=== PATIENT | male | born 1980 | race Caucasian/White ===

== ENCOUNTER 2018-08-29 22:50 | Emergency (ER) | payer OTHER, SELFPAY ==
[2018-08-29 22:58] VITALS: BP 136/91; PULSE 90; RESP 15; TEMP 36.9; O2SAT 98; BMI 31.1
--- NOTE | 2018-08-29 23:05 | DI.RAD.S_ITS ---
PROCEDURE: XR CHEST 1V INDICATIONS: Chest pain TECHNIQUE: One view of the chest was acquired. COMPARISON: None. FINDINGS: Surgical changes and devices: None. Lungs and pleura: Lungs are clear. No pleural effusions or pneumothorax. Mediastinum: Mediastinal contours appear normal. Heart size is normal. Bones and chest wall: No suspicious bony lesions. Overlying soft tissues appear unremarkable. IMPRESSION: No acute cardiopulmonary disease. No significant discrepancy with the ER preliminary interpretation. Dictated by: Monica Holm M.D. on 08/30/2018 at 8:06 Approved by: Monica Holm M.D. on 08/30/2018 at 8:06
[2018-08-29 23:10] LABS: Add Manual Diff / Slide Review NO; Basophils Absolute Auto 100 /uL (0-100); Basophils Percent Auto 0.8 % (0-2); Eosinophils Absolute Auto 200 /uL (0-450); Eosinophils Percent Auto 2.3 % (2-4); Hematocrit 44.4 % (41-53); Hemoglobin 15.3 g/dL (13.5-17.5); Lymphocytes Absolute Auto 1100 /uL (1100-4500); Lymphocytes Percent Auto 14.8 % (25-40); Mean Corpuscular HGB Conc 34.4 % (30-36); Mean Corpuscular Hemoglobin 31.4 PG (26-34); Mean Corpuscular Volume 91.3 fL (80-100); Monocytes Absolute Auto 1000 /uL (0-900); Monocytes Percent Auto 13.6 % (3-14); Neutrophils Absolute Auto 4900 /uL (1500-7000); Neutrophils Percent Auto 68.5 % (50-75); Platelet Count 155 X10^3/uL (150-400); Red Blood Cell Count 4.87 X10^6/uL (4.5-5.9); Red Cell Distribution Width 13.4 % (11.6-14.8); White Blood Cell Count 7.1 X10^3/uL (4.5-11.0)
[2018-08-29] MEDS: ASPIRIN 81 MG TAB 324 MG PO (23:11)
[2018-08-29 23:20] LABS: D Dimer 227 ng/mL (<230)
[2018-08-29 23:21] LABS: Alanine Aminotransferase 20 IU/L (21-72); Albumin 4.5 g/dL (3.5-5.0); Albumin Globulin Ratio 1.5 (1.0-2.8); Alkaline Phosphatase 66 U/L (38-126); Aspartate Aminotransferase 22 IU/L (17-59); BUN Creatinine Ratio 16.4 (6-22); Bilirubin Total 0.5 mg/dL (0.2-1.3); Blood Urea Nitrogen 18 mg/dL (9-20); Calcium 9.2 mg/dL (8.4-10.2); Carbon Dioxide 27 mmol/L (22-32); Chloride 103 mmol/L (98-107); Creatine Kinase 108 U/L (55-170); Estimated Glomerular Filt Rate > 60.0 mL/min (>60); Globulin 3.1 g/dL (1.7-4.1); Glucose 92 mg/dL (70-100); HEMOLYSIS < 15 (0-50); Lipase 43 U/L (23-300); Potassium 3.7 mmol/L (3.4-5.1); Sodium 139 mmol/L (137-145); Total Protein 7.6 g/dL (6.3-8.2)
[2018-08-29 23:23] VITALS: BP 131/84; PULSE 83; RESP 13; O2SAT 97
[2018-08-29 23:33] LABS: Troponin I < 0.012 ng/mL (0.01-0.034)
[2018-08-29 23:36] LABS: Creatine Kinase MB 1.05 ng/mL (<2.37)
--- NOTE | 2018-08-29 23:42 | ED.CHESTPAIN ---
HPI - Chest Pain General Chief Complaint: Chest Pain Stated Complaint: CHEST PAIN Time Seen by Provider: 08/29/18 22:50 Source: patient Mode of arrival: ambulatory Limitations: no limitations History of Present Illness HPI narrative: 37-year-old male former smoker presents to the emergency department with a chief complaint a day and a half multiple episodes left anterior chest pain with radiation directly back to his left shoulder. At maximum his pain is 8/10 and currently it is 2/10. He denies provocation or palliation. He states it is sharp and stabbing in nature and makes him feel short of breath. He denies any dizziness, weakness or lightheadedness. He did feel diaphoretic after one episode. He is active and denies any change with exertion. He denies N/V or diarrhea. He denies recent travel, history of blood clot or cancer. He denies any unilateral lower extremity pain, redness or swelling. He denies recent injury, or illness with cough, runny nose, sore throat MD complaint: chest pain Onset (ago): day(s) Duration: intermittent Pain location: left chest Severity: moderate Quality: sharp Pain radiation: back Relieving factors: nothing Exacerbating factors: nothing Associated symptoms: diaphoresis Treatments prior to arrival chest pain: none Related Data Allergies Allergy/AdvReac Type Severity Reaction Status Date / Time No Known Drug Allergies Allergy Verified 08/29/18 22:58 Review of Systems Constitutional Denies chills, Denies fever(s), Denies lethargy and Denies weakness Eyes Denies change in vision, Denies eye discharge, Denies irritation and Denies loss of vision ENT Ears, Nose, Mouth, and Throat: Denies change in voice, Denies neck pain and Denies sore throat Cardiovascular Reports chest pain, Denies irregular heart rhythm, Denies lightheadedness, Denies palpitations, Denies dyspnea, Denies dyspnea on exertion and Denies orthopnea Respiratory Denies cough, Denies dyspnea, Denies dyspnea on exertion and Denies wheezing Gastrointestinal Gastrointestinal: Denies abdominal pain, Denies change in bowel habits, Denies diarrhea, Denies nausea and Denies vomiting Genitourinary Denies hematuria, Denies flank pain, Denies urinary incontinence and Denies urinary urgency Musculoskeletal Denies neck pain Integumentary/Breasts Denies pruritus, Denies erythema, Denies rash and Denies wounds Neurologic Denies confusion, Denies loss of vision and Denies weakness Psychiatric Denies anxiety, Denies confusion, Denies depression, Denies homicidal ideation and Denies suicidal ideation Endocrine Denies palpitations Hematologic/Lymphatic Denies easy bruising Allergic/Immunologic Denies wheezing PFSH Social History Smoking Status: Former smoker Social History Smoking Status: Former smoker Exam Narrative Exam Narrative: GENERAL: 37-year-old male appears stated age, resting comfortably HEAD: Atraumatic. Normocephalic. No temporal or scalp tenderness. EYES: Pupils equal round and reactive. Extraocular motions intact. No scleral icterus. No injection or drainage. ENT: Nose without bleeding, purulent drainage or septal hematoma. Throat without erythema, tonsillar hypertrophy or exudate. Uvula midline. Airway patent. NECK: Trachea midline. No JVD or lymphadenopathy. Supple, nontender, no meningeal signs. CARDIOVASCULAR: Regular rate and rhythm without murmurs, gallops, or rubs. RESPIRATORY: Clear to auscultation. Breath sounds equal bilaterally. No wheezes, rales, or rhonchi. GASTROINTESTINAL: Abdomen soft, non-tender, nondistended. No hepato-splenomegaly, or palpable masses. No guarding. EXTREMITIES: No clubbing, cyanosis, or edema. No joint tenderness, effusion, or edema noted. BACK: Nontender without deformity or crepitance. No flank tenderness. NEURO: AOx3. SKIN: No rash or erythema. Initial Vital Signs Initial Vital Signs: Vital Signs Temperature 98.4 F 08/29/18 22:58 Pulse Rate 90 08/29/18 22:58 Respiratory Rate 15 08/29/18 22:58 Blood Pressure 136/91 H 08/29/18 22:58 Pulse Oximetry 98 08/29/18 22:58 Scores HEART Score Heart Score history: Slightly Suspicious Heart Score EKG: Normal Heart Score Age: < 45 years old Heart Score risk factors: No known risk factors Heart Score troponin: < or = to normal limit Heart Score Total: 0 Course Orders Ordered: ED Orders 08/29/18 23:05 XR chest 1V Stat 08/29/18 23:07 Complete Blood Count AUTO DIFF Stat Comprehensive Metabolic Panel Stat D Dimer Stat Lipase Stat Troponin & CK Cardiac Panel Stat 08/30/18 00:55 Troponin I Stat Discontinued Medications Aspirin (Aspirin Chew) 324 mg PO NOW ONE Stop: 08/29/18 23:06 Last Admin: 08/29/18 23:11 Dose: 324 mg Sodium Chloride (Normal Saline 0.9%) 1,000 mls @ 150 mls/hr IV CONT PERI Last Admin: 08/29/18 23:58 Dose: Not Given Ketorolac Tromethamine (Toradol) 15 mg IV NOW ONE Stop: 08/29/18 23:06 Last Admin: 08/29/18 23:58 Dose: Not Given Vital Signs - 8 hr 08/29/18 22:58 08/29/18 23:23 08/30/18 00:07 Temperature 98.4 F Pulse Rate 90 83 83 Respiratory Rate 15 13 19 Blood Pressure 136/91 H Blood Pressure [Right Arm] 131/84 127/90 Pulse Oximetry 98 97 95 08/30/18 02:05 Temperature Pulse Rate 83 Respiratory Rate 21 Blood Pressure 123/86 Blood Pressure [Right Arm] Pulse Oximetry 97 MDM - Chest Pain Lab Data Result diagrams: 08/29/18 23:07 08/29/18 23:07 Lab Results 08/29/18 08/29/18 08/29/18 Range/Units 23:07 23:07 23:07 WBC 7.1 (4.5-11.0) X10^3/uL RBC 4.87 (4.5-5.9) X10^6/uL Hgb 15.3 (13.5-17.5) g/dL Hct 44.4 (41-53) % MCV 91.3 (80-100) fL MCH 31.4 (26-34) PG MCHC 34.4 (30-36) % RDW 13.4 (11.6-14.8) % Plt Count 155 (150-400) X10^3/uL Neut % (Auto) 68.5 (50-75) % Lymph % (Auto) 14.8 L (25-40) % [place] % (Auto) 13.6 (3-14) % Eos % (Auto) 2.3 (2-4) % Baso % (Auto) 0.8 (0-2) % Neut # (Auto) 4900 (8748-2922) /uL Lymph # (Auto) 1100 (5913-8692) /uL [place] # (Auto) 1000 H (0-900) /uL Eos # (Auto) 200 (0-450) /uL Baso # (Auto) 100 (0-100) /uL D-Dimer 227 (<230) ng/mL Sodium 139 (137-145) mmol/L Potassium 3.7 (3.4-5.1) mmol/L Chloride 103 (98-107) mmol/L Carbon Dioxide 27 (22-32) mmol/L BUN 18 (9-20) mg/dL Creatinine 1.10 (0.66-1.25) mg/dL Estimated GFR > 60.0 (>60) mL/min BUN/Creatinine Ratio 16.4 (6-22) Glucose 92 (70-100) mg/dL Calcium 9.2 (8.4-10.2) mg/dL Total Bilirubin 0.5 (0.2-1.3) mg/dL AST 22 (17-59) IU/L ALT 20 L (21-72) IU/L Alkaline Phosphatase 66 (38-126) U/L Total Creatine Kinase 108 (55-170) U/L CK-MB (CK-2) 1.05 (<2.37) ng/mL CK-MB (CK-2) Rel Index 1.0 L (1.5-5.0) % Troponin I < 0.012 (0.01-0.034) ng/mL Total Protein 7.6 (6.3-8.2) g/dL Albumin 4.5 (3.5-5.0) g/dL Globulin 3.1 (1.7-4.1) g/dL Albumin/Globulin Ratio 1.5 (1.0-2.8) Lipase 43 (23-300) U/L 08/30/18 Range/Units 00:55 WBC (4.5-11.0) X10^3/uL RBC (4.5-5.9) X10^6/uL Hgb (13.5-17.5) g/dL Hct (41-53) % MCV (80-100) fL MCH (26-34) PG MCHC (30-36) % RDW (11.6-14.8) % Plt Count (150-400) X10^3/uL Neut % (Auto) (50-75) % Lymph % (Auto) (25-40) % [place] % (Auto) (3-14) % Eos % (Auto) (2-4) % Baso % (Auto) (0-2) % Neut # (Auto) (6076-6276) /uL Lymph # (Auto) (8760-9389) /uL [place] # (Auto) (0-900) /uL Eos # (Auto) (0-450) /uL Baso # (Auto) (0-100) /uL D-Dimer (<230) ng/mL Sodium (137-145) mmol/L Potassium (3.4-5.1) mmol/L Chloride (98-107) mmol/L Carbon Dioxide (22-32) mmol/L BUN (9-20) mg/dL Creatinine (0.66-1.25) mg/dL Estimated GFR (>60) mL/min BUN/Creatinine Ratio (6-22) Glucose (70-100) mg/dL Calcium (8.4-10.2) mg/dL Total Bilirubin (0.2-1.3) mg/dL AST (17-59) IU/L ALT (21-72) IU/L Alkaline Phosphatase (38-126) U/L Total Creatine Kinase (55-170) U/L CK-MB (CK-2) (<2.37) ng/mL CK-MB (CK-2) Rel Index (1.5-5.0) % Troponin I < 0.012 (0.01-0.034) ng/mL Total Protein (6.3-8.2) g/dL Albumin (3.5-5.0) g/dL Globulin (1.7-4.1) g/dL Albumin/Globulin Ratio (1.0-2.8) Lipase (23-300) U/L MDM Narrative Medical decision making narrative: Multiple etiologies for patient's symptoms considered including: [Ischemic heart disease] Patient's symptoms improved or duration of stay with above-stated therapies. Findings and discharge diagnosis discussed with patient/family followed by verbalization of understanding Return precautions discussed with patient/family whom verbalize understanding. Discharge Plan Departure Patient Disposition: Home Clinical Impression: Atypical chest pain Discharge Date/Time: 08/30/18 02:05 Interventions: ED Discharge Assessment Last Done: 08/30/18 02:05 Instructions: DI for Atypical Chest Pain Activity Restrictions/Additional Instructions: *You have been diagnosed with [chest pain. Your EKG is unremarkable and blood work is reassuring.] *What to do: *Follow up with your primary care provider in 2-3 days, call for an appointment. Let them know you were seen in the Emergency Department and that we ask that you be seen in follow up *Return to ER if you should have any new, worsening or concerning symptoms
[2018-08-30 00:07] VITALS: BP 127/90; PULSE 83; RESP 19; O2SAT 95
[2018-08-30 01:24] LABS: Troponin I < 0.012 ng/mL (0.01-0.034)
[2018-08-30 02:05] VITALS: BP 123/86; PULSE 83; RESP 21; O2SAT 97
== END 2018-08-30 02:05 | disposition home or self-care (01) ==
PROVIDERS: Emergency Provider Emergency Medicine
DX: R07.89 Other chest pain (principal)
CPT/HCPCS: 36591; 71045; 80053; 82550; 82553; 83690; 84484; 85025; 85379; 93005; 99282; 99285

== ENCOUNTER 2020-12-27 15:44 | Emergency (ER) | payer OTHER, SELFPAY ==
[2020-12-27 15:49] VITALS: BP 128/80; PULSE 76; RESP 16; TEMP 36.4; O2SAT 98; BMI 32.1
--- NOTE | 2020-12-27 17:51 | DI.RAD.S_ITS ---
PROCEDURE: XR CHEST 2V INDICATIONS: CP, SOB TECHNIQUE: 2 views of the chest were acquired. COMPARISON: [facility], CR, XR CHEST 1V, 08/29/2018, 23:10. FINDINGS: Surgical changes and devices: None. Lungs and pleura: Lungs are clear. No pleural effusions or pneumothorax. Mediastinum: Mediastinal contours are normal. Heart size is normal. Bones and chest wall: No suspicious bony abnormalities. Soft tissues appear unremarkable. IMPRESSION: Normal chest x-ray Approved by: See Wood M.D. on 12/27/2020 at 17:32
[2020-12-27] MEDS: MAG HYDROX/ALUMINUM/SIMETH SUS 20 ML, LIDOCAINE VISCOUS 2% 15 ML PO (18:05)
[2020-12-27] MEDS: FAMOTIDINE 20 MG TABLET PO (18:05)
--- NOTE | 2020-12-27 18:11 | ED.ARRPALP ---
HPI - Arrhythmia/Palpitations <Karla Neumann PA-C - Last Filed: 12/27/20 20:09> General Chief Complaint: Arrhythmia/Palpitations Stated Complaint: Heart Palps/SOB, Post Booster Time Seen by Provider: 12/27/20 17:39 Source: patient Mode of arrival: Ambulatory History of Present Illness HPI narrative: 40-year-old male with past medical history asthma presents to the ED with 2 days of palpitations. Patient had his COVID booster shot 5 days ago, experienced flu like symptoms for the next 2 days which resolved. Yesterday, patient started experiencing intermittent palpitations. Patient also endorses exertional shortness of breath and a dull substernal chest pain that does not radiate. Patient denies fever, chills, cough, nausea, vomiting, abdominal pain, lightheadedness, syncope. Patient endorses feeling some dizziness yesterday which has since then resolved. Patient denies any family cardiac history or early cardiac deaths in the family. Tested COVID-2 days ago. Related Data Allergies Allergy/AdvReac Type Severity Reaction Status Date / Time No Known Drug Allergies Allergy Verified 12/27/20 15:51 Review of Systems <Karla Neumann PA-C - Last Filed: 12/27/20 20:09> Review of Systems ROS Unobtainable: All systems reviewed & are unremarkable except as noted in HPI and below Constitutional Constitutional: Denies chills, Denies fatigue, Denies fever(s), Denies frequent falls, Denies lethargy and Denies weakness Eyes Eyes: Denies change in vision, Denies eye discharge, Denies irritation and Denies loss of vision ENT Ears, Nose, Mouth, and Throat: Denies change in voice, Denies dizziness, Denies neck pain, Denies sore throat and Denies throat swelling Cardiovascular Cardiovascular: Reports chest pain, Denies irregular heart rhythm, Denies lightheadedness, Denies palpitations, Denies dyspnea, Reports dyspnea on exertion and Denies orthopnea Comments: Palpitations Respiratory Respiratory: Denies cough, Denies dyspnea, Reports dyspnea on exertion and Denies wheezing Gastrointestinal Gastrointestinal: Denies abdominal pain, Denies change in bowel habits, Denies diarrhea, Denies nausea and Denies vomiting Genitourinary Genitourinary: Denies hematuria, Denies flank pain, Denies urinary incontinence and Denies urinary urgency Musculoskeletal Musculoskeletal: Denies back pain, Denies muscle weakness, Denies neck pain, Denies numbness and Denies tingling Integumentary/Breasts Skin/Breast: Denies pruritus, Denies erythema, Denies rash and Denies wounds Neurologic Neurologic: Denies behavioral changes, Denies confusion, Denies dizziness, Denies frequent falls, Denies loss of vision, Denies numbness, Denies tingling and Denies weakness Psychiatric Psychiatric: Denies anxiety, Denies behavioral changes, Denies confusion, Denies depression, Denies homicidal ideation and Denies suicidal ideation Endocrine Endocrine: Denies fatigue, Denies flushing and Denies palpitations Hematologic/Lymphatic Hematologic/Lymphatic: Denies easy bruising Allergic/Immunologic Allergic/Immunologic: Denies urticaria, Denies throat swelling and Denies wheezing Patient History <Karla Neumann PA-C - Last Filed: 12/27/20 20:09> Social History Smoking Status: Former smoker Smoking Status: Former smoker alcohol intake frequency: holidays/special occasions only Substance Use Type: does not use Exam <Karla Neumann PA-C - Last Filed: 12/27/20 20:09> Initial Vital Signs Initial Vital Signs: Vital Signs Temperature 97.5 F L 12/27/20 15:49 Pulse Rate 76 12/27/20 15:49 Respiratory Rate 16 12/27/20 15:49 Blood Pressure 128/80 12/27/20 15:49 Pulse Oximetry 98 12/27/20 15:49 Const General: cooperative and healthy appearing [facility] Head: normal to inspection Eyes General: appearance normal, both eyes and all related structures Neck Neck: normal visual inspection Chest Chest: normal inspection of the chest Resp Effort & Inspection: normal respiratory effort Auscultation: clear to auscultation bilaterally Cardio Rate: regular rate Rhythm: regular rhythm GI Inspection: normal to inspection Other: Abdomen soft, nontender, nondistended General: No CVA tenderness Skin General: no rashes or lesions noted Neuro General: patient alert, patient awake and patient oriented x3 <Otf Dalal DO - Last Filed: 12/28/20 07:10> Initial Vital Signs Initial Vital Signs: Vital Signs Temperature 97.5 F L 12/27/20 15:49 Pulse Rate 76 12/27/20 15:49 Respiratory Rate 16 12/27/20 15:49 Blood Pressure 128/80 12/27/20 15:49 Pulse Oximetry 98 12/27/20 15:49 Scores <Karla Neumann PA-C - Last Filed: 12/27/20 20:09> HEART Score Heart Score history: Slightly Suspicious Heart Score EKG: Normal Heart Score Age: < 45 years old Heart Score risk factors: No known risk factors Heart Score troponin: < or = to normal limit Heart Score Total: 0 <Otf Dalal DO - Last Filed: 12/28/20 07:10> HEART Score Heart Score Total: 0 Course <Karla Neumann PA-C - Last Filed: 12/27/20 20:09> Course Course Narrative: Workup all within normal limits with no acute findings. Heart score 0. Were discharge patient home with ED return precautions. Orders Ordered: Discontinued Medications Al Hydrox/Mg Hydrox/Simethicone 20 ml/ Lidocaine HCl 15 ml 0 ml PO NOW ONE Stop: 12/27/20 17:54 Last Admin: 12/27/20 18:05 Dose: 35 ml Documented by: IRMA Famotidine (Famotidine 20 Mg Tablet) 20 mg PO Q48H ONE Stop: 12/27/20 17:54 Last Admin: 12/27/20 18:05 Dose: 20 mg Documented by: IRMA Vital Signs Vital signs: Vital Signs - 8 hr 12/27/20 15:49 Temperature 97.5 F L Pulse Rate 76 Respiratory Rate 16 Blood Pressure 128/80 Pulse Oximetry 98 <Otf Dalal DO - Last Filed: 12/28/20 07:10> Orders Ordered: Discontinued Medications Al Hydrox/Mg Hydrox/Simethicone 20 ml/ Lidocaine HCl 15 ml 0 ml PO NOW ONE Stop: 12/27/20 17:54 Last Admin: 12/27/20 18:05 Dose: 35 ml Documented by: IRMA Famotidine (Famotidine 20 Mg Tablet) 20 mg PO Q48H ONE Stop: 12/27/20 17:54 Last Admin: 12/27/20 18:05 Dose: 20 mg Documented by: IRMA Vital Signs Vital signs: Vital Signs - 8 hr 12/27/20 15:49 Temperature 97.5 F L Pulse Rate 76 Respiratory Rate 16 Blood Pressure 128/80 Pulse Oximetry 98 MDM - Arrhythmia/Palpitations <Karla Neumann PA-C - Last Filed: 12/27/20 20:09> Lab Data Lab results narrative: Labs within normal limits Result diagrams: 12/27/20 18:10 12/27/20 18:10 Labs: Lab Results 12/27/20 12/27/20 12/27/20 Range/Units 18:10 18:10 18:10 WBC 5.8 (4.5-11.0) X10^3/uL RBC 5.08 (4.5-5.9) X10^6/uL Hgb 15.7 (13.5-17.5) g/dL Hct 46.5 (41-53) % MCV 91.5 (80-100) fL MCH 31.0 (26-34) PG MCHC 33.8 (30-36) % RDW 13.8 (11.6-14.8) % Plt Count 158 (150-400) X10^3/uL Neut % (Auto) 55.9 (50-75) % Lymph % (Auto) 29.3 (25-40) % [place] % (Auto) 9.2 (3-14) % Eos % (Auto) 5.1 H (2-4) % Baso % (Auto) 0.5 (0-2) % Neut # (Auto) 3200 (2578-9312) /uL Lymph # (Auto) 1700 (3109-1397) /uL [place] # (Auto) 500 (0-900) /uL Eos # (Auto) 300 (0-450) /uL Baso # (Auto) 0 (0-100) /uL D-Dimer < 200 (<230) ng/mL Sodium 141 (137-145) mmol/L Potassium 4.1 (3.4-5.1) mmol/L Chloride 103 (98-107) mmol/L Carbon Dioxide 26 (22-32) mmol/L BUN 15 (9-20) mg/dL Creatinine 1.08 (0.66-1.25) mg/dL Estimated GFR > 60.0 (>60) mL/min BUN/Creatinine Ratio 13.9 (6-22) Glucose 92 (70-100) mg/dL Calcium 9.5 (8.4-10.2) mg/dL Total Bilirubin 0.5 (0.2-1.3) mg/dL AST 32 (17-59) IU/L ALT 37 (<50) IU/L Alkaline Phosphatase 66 (38-126) U/L Troponin I < 0.012 (0.01-0.034) ng/mL Total Protein 7.8 (6.3-8.2) g/dL Albumin 4.7 (3.5-5.0) g/dL Globulin 3.1 (1.7-4.1) g/dL Albumin/Globulin Ratio 1.5 (1.0-2.8) TSH (0.47-4.68) uIU/mL SARS-CoV-2 (PCR) (Negative) 12/27/20 12/27/20 Range/Units 18:13 18:50 WBC (4.5-11.0) X10^3/uL RBC (4.5-5.9) X10^6/uL Hgb (13.5-17.5) g/dL Hct (41-53) % MCV (80-100) fL MCH (26-34) PG MCHC (30-36) % RDW (11.6-14.8) % Plt Count (150-400) X10^3/uL Neut % (Auto) (50-75) % Lymph % (Auto) (25-40) % [place] % (Auto) (3-14) % Eos % (Auto) (2-4) % Baso % (Auto) (0-2) % Neut # (Auto) (0656-8704) /uL Lymph # (Auto) (6743-8539) /uL [place] # (Auto) (0-900) /uL Eos # (Auto) (0-450) /uL Baso # (Auto) (0-100) /uL D-Dimer (<230) ng/mL Sodium (137-145) mmol/L Potassium (3.4-5.1) mmol/L Chloride (98-107) mmol/L Carbon Dioxide (22-32) mmol/L BUN (9-20) mg/dL Creatinine (0.66-1.25) mg/dL Estimated GFR (>60) mL/min BUN/Creatinine Ratio (6-22) Glucose (70-100) mg/dL Calcium (8.4-10.2) mg/dL Total Bilirubin (0.2-1.3) mg/dL AST (17-59) IU/L ALT (<50) IU/L Alkaline Phosphatase (38-126) U/L Troponin I (0.01-0.034) ng/mL Total Protein (6.3-8.2) g/dL Albumin (3.5-5.0) g/dL Globulin (1.7-4.1) g/dL Albumin/Globulin Ratio (1.0-2.8) TSH 0.717 (0.47-4.68) uIU/mL SARS-CoV-2 (PCR) Negative (Negative) ECG Data Interpretation: Normal sinus rhythm, nonspecific ST-T abnormality, no axis deviation MDM Narrative Medical decision making narrative: 40-year-old male with past medical history asthma presents to the ED with 2 days of palpitations. Concern for ACS versus PE versus gastritis versus GERD. Will order chest x-ray, EKG, troponin, labs, D-dimer. Will give GI cocktail, Pepcid for symptom relief. Will reassess. <Otf Dalal, - Last Filed: 12/28/20 07:10> Lab Data Labs: Lab Results 12/27/20 12/27/20 12/27/20 Range/Units 18:10 18:10 18:10 WBC 5.8 (4.5-11.0) X10^3/uL RBC 5.08 (4.5-5.9) X10^6/uL Hgb 15.7 (13.5-17.5) g/dL Hct 46.5 (41-53) % MCV 91.5 (80-100) fL MCH 31.0 (26-34) PG MCHC 33.8 (30-36) % RDW 13.8 (11.6-14.8) % Plt Count 158 (150-400) X10^3/uL Neut % (Auto) 55.9 (50-75) % Lymph % (Auto) 29.3 (25-40) % [place] % (Auto) 9.2 (3-14) % Eos % (Auto) 5.1 H (2-4) % Baso % (Auto) 0.5 (0-2) % Neut # (Auto) 3200 (7356-9488) /uL Lymph # (Auto) 1700 (6360-4387) /uL [place] # (Auto) 500 (0-900) /uL Eos # (Auto) 300 (0-450) /uL Baso # (Auto) 0 (0-100) /uL D-Dimer < 200 (<230) ng/mL Sodium 141 (137-145) mmol/L Potassium 4.1 (3.4-5.1) mmol/L Chloride 103 (98-107) mmol/L Carbon Dioxide 26 (22-32) mmol/L BUN 15 (9-20) mg/dL Creatinine 1.08 (0.66-1.25) mg/dL Estimated GFR > 60.0 (>60) mL/min BUN/Creatinine Ratio 13.9 (6-22) Glucose 92 (70-100) mg/dL Calcium 9.5 (8.4-10.2) mg/dL Total Bilirubin 0.5 (0.2-1.3) mg/dL AST 32 (17-59) IU/L ALT 37 (<50) IU/L Alkaline Phosphatase 66 (38-126) U/L Troponin I < 0.012 (0.01-0.034) ng/mL Total Protein 7.8 (6.3-8.2) g/dL Albumin 4.7 (3.5-5.0) g/dL Globulin 3.1 (1.7-4.1) g/dL Albumin/Globulin Ratio 1.5 (1.0-2.8) TSH (0.47-4.68) uIU/mL SARS-CoV-2 (PCR) (Negative) 12/27/20 12/27/20 Range/Units 18:13 18:50 WBC (4.5-11.0) X10^3/uL RBC (4.5-5.9) X10^6/uL Hgb (13.5-17.5) g/dL Hct (41-53) % MCV (80-100) fL MCH (26-34) PG MCHC (30-36) % RDW (11.6-14.8) % Plt Count (150-400) X10^3/uL Neut % (Auto) (50-75) % Lymph % (Auto) (25-40) % [place] % (Auto) (3-14) % Eos % (Auto) (2-4) % Baso % (Auto) (0-2) % Neut # (Auto) (9115-2864) /uL Lymph # (Auto) (8528-5540) /uL [place] # (Auto) (0-900) /uL Eos # (Auto) (0-450) /uL Baso # (Auto) (0-100) /uL D-Dimer (<230) ng/mL Sodium (137-145) mmol/L Potassium (3.4-5.1) mmol/L Chloride (98-107) mmol/L Carbon Dioxide (22-32) mmol/L BUN (9-20) mg/dL Creatinine (0.66-1.25) mg/dL Estimated GFR (>60) mL/min BUN/Creatinine Ratio (6-22) Glucose (70-100) mg/dL Calcium (8.4-10.2) mg/dL Total Bilirubin (0.2-1.3) mg/dL AST (17-59) IU/L ALT (<50) IU/L Alkaline Phosphatase (38-126) U/L Troponin I (0.01-0.034) ng/mL Total Protein (6.3-8.2) g/dL Albumin (3.5-5.0) g/dL Globulin (1.7-4.1) g/dL Albumin/Globulin Ratio (1.0-2.8) TSH 0.717 (0.47-4.68) uIU/mL SARS-CoV-2 (PCR) Negative (Negative) Discharge Plan Departure Patient Disposition: Home Clinical Impression: Palpitations Instructions: DI for Arrhythmias Activity Restrictions/Additional Instructions: You were evaluated in the ED today for palpitations. Your EKG, chest x-ray, labs were normal. Your heart enzyme troponin, thyroid enzymes TSH were normal. Your D-dimer, which is an indication of blood clots in the legs or lungs was normal as well. Please return to the ED if you experience worsening symptoms, chest pain, shortness of breath, lightheadedness, dizziness, loss of consciousness. Please follow-up with your PCP. <Otf Dalal, DO - Last Filed: 12/28/20 07:10> Cosign ED Attending Cosignature Attestation: Dr Dalal Co-Sign Statement: I was available for consultation during this patient's emergency department visit. This chart is signed by myself for administrative purposes only. I did not have direct contact with this patient during this visit. They were seen independently by the APC.
[2020-12-27 18:20] LABS: Add Manual Diff / Slide Review NO; Basophils Absolute Auto 0 /uL (0-100); Basophils Percent Auto 0.5 % (0-2); Eosinophils Absolute Auto 300 /uL (0-450); Eosinophils Percent Auto 5.1 % (2-4); Hematocrit 46.5 % (41-53); Hemoglobin 15.7 g/dL (13.5-17.5); Lymphocytes Absolute Auto 1700 /uL (1100-4500); Lymphocytes Percent Auto 29.3 % (25-40); Mean Corpuscular HGB Conc 33.8 % (30-36); Mean Corpuscular Volume 91.5 fL (80-100); Monocytes Absolute Auto 500 /uL (0-900); Monocytes Percent Auto 9.2 % (3-14); Neutrophils Absolute Auto 3200 /uL (1500-7000); Neutrophils Percent Auto 55.9 % (50-75); Platelet Count 158 X10^3/uL (150-400); Red Blood Cell Count 5.08 X10^6/uL (4.5-5.9); Red Cell Distribution Width 13.8 % (11.6-14.8); White Blood Cell Count 5.8 X10^3/uL (4.5-11.0)
[2020-12-27 18:44] LABS: Alanine Aminotransferase 37 IU/L (<50); Albumin 4.7 g/dL (3.5-5.0); Albumin Globulin Ratio 1.5 (1.0-2.8); Alkaline Phosphatase 66 U/L (38-126); Aspartate Aminotransferase 32 IU/L (17-59); BUN Creatinine Ratio 13.9 (6-22); Bilirubin Total 0.5 mg/dL (0.2-1.3); Blood Urea Nitrogen 15 mg/dL (9-20); Calcium 9.5 mg/dL (8.4-10.2); Carbon Dioxide 26 mmol/L (22-32); Chloride 103 mmol/L (98-107); Estimated Glomerular Filt Rate > 60.0 mL/min (>60); Globulin 3.1 g/dL (1.7-4.1); Glucose 92 mg/dL (70-100); HEMOLYSIS 33 (0-50); Potassium 4.1 mmol/L (3.4-5.1); Sodium 141 mmol/L (137-145); Total Protein 7.8 g/dL (6.3-8.2)
[2020-12-27 18:55] LABS: Troponin I < 0.012 ng/mL (0.01-0.034)
[2020-12-27 19:12] LABS: COVID19 -Nasal RAPID Negative (Negative)
[2020-12-27 19:13] LABS: D Dimer < 200 ng/mL (<230)
[2020-12-27 19:50] LABS: Thyroid Stimulating Hormone 0.717 uIU/mL (0.47-4.68)
[2020-12-27 20:13] VITALS: BP 120/70; PULSE 72; RESP 16; O2SAT 99
== END 2020-12-27 20:15 | disposition home or self-care (01) ==
PROVIDERS: Emergency Provider Student in an Organized Health Care Education/Training Program
DX: R00.2 Palpitations (principal); Z20.822 Contact with and (suspected) exposure to COVID-19
CPT/HCPCS: 71046; 80053; 84443; 84484; 85025; 85379; 87635; 93005; 99283; 99284; C9803; A9270

== ENCOUNTER 2021-10-11 13:33 | Emergency (ER) | payer OTHER, SELFPAY ==
[2021-10-11 13:40] VITALS: BP 125/77; PULSE 66; RESP 16; TEMP 36.6; O2SAT 97; BMI 29.9
--- NOTE | 2021-10-11 13:46 | DI.RAD.S_ITS ---
PROCEDURE: XR CHEST 1V INDICATIONS: chest pain TECHNIQUE: One view of the chest was acquired. COMPARISON: [facility], CR, XR CHEST 2V, 12/27/2020, 17:46. FINDINGS: Surgical changes and devices: None. Lungs and pleura: Lungs are clear. No pleural effusions or pneumothorax. Mediastinum: Mediastinal contours appear normal. Heart size is normal. Bones and chest wall: No suspicious bony lesions. Overlying soft tissues appear unremarkable. IMPRESSION: No acute pulmonary process. Dictated by: Sally Hinton M.D. on 10/11/2021 at 14:40 Approved by: Sally Hinton M.D. on 10/11/2021 at 14:41
[2021-10-11 14:21] LABS: Add Manual Diff / Slide Review NO; Basophils Absolute Auto 0 /uL (0-100); Basophils Percent Auto 0.7 % (0-2); Eosinophils Absolute Auto 400 /uL (0-450); Eosinophils Percent Auto 8.5 % (2-4); Hematocrit 43.5 % (41-53); Hemoglobin 14.7 g/dL (13.5-17.5); Lymphocytes Absolute Auto 1200 /uL (1100-4500); Lymphocytes Percent Auto 23.9 % (25-40); Mean Corpuscular HGB Conc 33.8 % (30-36); Mean Corpuscular Hemoglobin 30.9 PG (26-34); Mean Corpuscular Volume 91.5 fL (80-100); Monocytes Absolute Auto 500 /uL (0-900); Monocytes Percent Auto 9.2 % (3-14); Neutrophils Absolute Auto 2900 /uL (1500-7000); Neutrophils Percent Auto 57.7 % (50-75); Platelet Count 159 X10^3/uL (150-400); Red Blood Cell Count 4.75 X10^6/uL (4.5-5.9); Red Cell Distribution Width 13.5 % (11.6-14.8)
[2021-10-11 14:28] LABS: INR 1.1 (0.9-1.3); Prothrombin Time 12.4 SECONDS (10.1-12.7)
[2021-10-11 14:31] LABS: PTT Partial Thromboplastin Tim 31 SECONDS (26-36)
[2021-10-11 14:32] VITALS: PULSE 64; O2SAT 95
--- NOTE | 2021-10-11 14:33 | ED_ITS ---
HPI - Chest Pain General Chief Complaint: Chest Pain Stated Complaint: Tachy, nauseas, dizzy Time Seen by Provider: 10/11/21 14:29 History of Present Illness HPI narrative: Mikey is a 41-year-old man who comes to the ER today with to self-limited episodes of tachycardia. Couple of days ago while playing video games he felt his heart rate start racing. It was between 140 and 150 on his pulse oximeter and persisted that way for about an hour and then promptly resolved. Similar t ernesto happened today while sitting on the couch watching television with his children. It was not associated with lightheadedness or chest pain or shortness of breath or nausea or sweats. He is concerned that it might represent atrial fibrillation but he also thought it might be SVT. He denies any stimulant use. He says he drinks a Pepsi occasionally drinks no caffeine otherwise. He denies cocaine or methamphetamine use. He denies having had these symptoms previously. Says that he used to have high cholesterol but that has subsequently resolved. He is to smoke cigarettes but quit some 5 years ago. Has no first-degree relatives with early coronary disease. He had a COVID infection followed by a superinfection pneumonia in September of this year. Related Data Allergies Allergy/AdvReac Type Severity Reaction Status Date / Time No Known Drug Allergies Allergy Verified 12/27/20 15:51 Review of Systems Review of Systems Narrative: Complete review of systems is negative other than as noted above. Patient History Social History Smoking Status: Former smoker Smoking Status: Former smoker alcohol intake frequency: holidays/special occasions only Substance Use Type: does not use Exam Narrative Exam Narrative: GENERAL: Alert, cooperative and in no distress. HEAD: Atraumatic. Normocephalic. EYES: Sclera are clear without icterus. Extraocular movements are full. ENT: No rhinorrhea. Oropharynx is moist. Mouth exam is benign. NECK: Supple. Full range of motion. CARDIOVASCULAR: Normal rate and rhythm without murmur gallop or rub. RESPIRATORY: Clear to auscultation. Breath sounds equal bilaterally. No wheezes, rales, or rhonchi. GASTROINTESTINAL: Abdomen soft, non-tender, nondistended. EXTREMITIES: No edema, full range of motion. No obvious trauma. BACK: Normal inspection, no CVA tenderness. NEURO: Nonfocal examination, normal speech, normal gait. SKIN: No rash or erythema of visible areas PSYCH: Normally oriented. Normal range of affect. Appropriate behavior Initial Vital Signs Initial Vital Signs: Vital Signs Temperature 97.8 F 10/11/21 13:40 Pulse Rate 66 10/11/21 13:40 Respiratory Rate 16 10/11/21 13:40 Blood Pressure 125/77 10/11/21 13:40 Pulse Oximetry 97 10/11/21 13:40 Oxygen Delivery Method 10/11/21 13:40 Course Orders Ordered: ED Orders 10/11/21 13:46 XR chest 1V Stat COVID19 -Nasal RAPID/Pre-Proc Stat EKG-12 Lead Stat 10/11/21 14:12 Complete Blood Count AUTO DIFF Stat Comprehensive Metabolic Panel Stat Lipase Stat Magnesium Stat Partial Thromboplastin Time Stat Prothrombin Time INR Stat Troponin & CK Cardiac Panel Stat Vital Signs Vital signs: Vital Signs - 8 hr 10/11/21 13:40 Temperature 97.8 F Pulse Rate 66 Respiratory Rate 16 Blood Pressure 125/77 Pulse Oximetry 97 Oxygen Delivery Method Room Air MDM - Chest Pain Lab Data Result diagrams: 10/11/21 14:12 10/11/21 14:12 Labs: Lab Results 10/11/21 10/11/21 Range/Units 14:12 14:12 WBC 5.0 (4.5-11.0) X10^3/uL RBC 4.75 (4.5-5.9) X10^6/uL Hgb 14.7 (13.5-17.5) g/dL Hct 43.5 (41-53) % MCV 91.5 (80-100) fL MCH 30.9 (26-34) PG MCHC 33.8 (30-36) % RDW 13.5 (11.6-14.8) % Plt Count 159 (150-400) X10^3/uL Neut % (Auto) 57.7 (50-75) % Lymph % (Auto) 23.9 L (25-40) % [place] % (Auto) 9.2 (3-14) % Eos % (Auto) 8.5 H (2-4) % Baso % (Auto) 0.7 (0-2) % Neut # (Auto) 2900 (3919-6663) /uL Lymph # (Auto) 1200 (0479-7637) /uL [place] # (Auto) 500 (0-900) /uL Eos # (Auto) 400 (0-450) /uL Baso # (Auto) 0 (0-100) /uL PT 12.4 (10.1-12.7) SECONDS INR 1.1 (0.9-1.3) APTT 31 (26-36) SECONDS Imaging Data Chest x-ray: Radiologist's Impression: IMPRESSION: No acute pulmonary process. Dictated by: Sally Hinton M.D. on 10/11/2021 at 14:40 Approved by: Sally Hinton M.D. on 10/11/2021 at 14:41 ECG Data Interpretation: EKG obtained at 1:51 p.m. reveals a sinus rhythm at 62 beats per minute. This is a normal EKG. MDM Narrative Medical decision making narrative: Self-limited episodes of tachycardia without other symptoms. No syncope. No chest pain. He has no risk factors for pulmonary embolism and has a PERC score that is reassuring. He is PERC negative Discharge Plan Departure Patient Disposition: Home Clinical Impression: Chest pain Instructions: DI for Arrhythmias Activity Restrictions/Additional Instructions: No dangerous cause for your fast heart rate was discovered today. I do not suspect acute coronary ischemia or pulmonary embolism. Your chest x-ray is normal, your EKG is normal. Laboratory data including a troponin is also normal. I recommend follow-up with your primary care doctor to discuss a wearable rhythm monitor. You should follow up right away for syncope or chest pain. If you have another one of these events it is okay to try vagal maneuvers to try to slow the heart rate down.
[2021-10-11 14:34] LABS: Alanine Aminotransferase 37 IU/L (<50); Albumin 4.4 g/dL (3.5-5.0); Albumin Globulin Ratio 1.4 (1.0-2.8); Alkaline Phosphatase 69 U/L (38-126); Aspartate Aminotransferase 27 IU/L (17-59); BUN Creatinine Ratio 9.9 (6-22); Bilirubin Total 0.5 mg/dL (0.2-1.3); Blood Urea Nitrogen 10 mg/dL (9-20); Calcium 9.1 mg/dL (8.4-10.2); Carbon Dioxide 27 mmol/L (22-32); Chloride 106 mmol/L (98-107); Creatine Kinase 66 U/L (55-170); Estimated Glomerular Filt Rate > 60 mL/min (>60); Globulin 3.2 g/dL (1.7-4.1); Glucose 90 mg/dL (70-100); HEMOLYSIS 15 (0-50); Lipase 52 U/L (23-300); Potassium 4.3 mmol/L (3.4-5.1); Sodium 138 mmol/L (137-145); Total Protein 7.6 g/dL (6.3-8.2)
[2021-10-11 14:45] LABS: Troponin I < 0.012 ng/mL (0.01-0.034)
--- NOTE | 2021-10-11 14:49 | PC.NURSE ---
Patient states he has a run of tachycardia at home. During assessment patient denies ever having any chest pain.
[2021-10-11 15:20] VITALS: BP 111/73; PULSE 62; RESP 16; O2SAT 97
== END 2021-10-11 15:22 | disposition home or self-care (01) ==
PROVIDERS: Emergency Provider Family Medicine Addiction Medicine
DX: R07.9 Chest pain, unspecified (principal)
CPT/HCPCS: 36415; 71045; 80053; 82550; 83690; 83735; 84484; 85025; 85610; 85730; 93005; 93010; 99283; 99284